=== PATIENT | male | born 1940 | race Caucasian/White ===

== ENCOUNTER 2021-01-25 21:25 | Emergency (ER) | payer MEDICARE, SELFPAY ==
--- NOTE | ~2021-01-25 | XR_ITS ---
XR chest 1V portable 01/25/2021 22:53 Indication: Cough Procedure: AP portable chest Comparison: 03/15/2010 Findings: Cardiomegaly. Mild interstitial edema. No significant effusion or pneumothorax. No acute os seous abnormality. No significant pleural effusion. Impression: 1: Cardiomegaly with mild interstitial edema. Reviewed, dictated and finalized at location A. Impression: 1: Cardiomegaly with mild interstitial edema.
[2021-01-25 21:32] VITALS: BP 170/90; PULSE 102; RESP 18; TEMP 36.8; O2SAT 97
--- NOTE | 2021-01-25 22:41 | ECG_ITS ---
Measurements Intervals [place] Rate: 85 P: 64 TN: 174 QRS: -36 QRSD: 122 T: -7 QT: 348 QTc: 415 Interpretive Statements SINUS RHYTHM WITH SINUS ARRHYTHMIA INTRAVENTRICULAR CONDUCTION DELAY DELAYED PRECORDIAL R/S TRANSITION INFERIOR INFARCT, AGE INDETERMINATE BASELINE ARTIFACT- I, II, III, AVR, AVL, AVF ABNORMAL ECG Electronically Signed On 01-26-2021 6:28:44 CDT by Preet Chavez D.O.
[2021-01-25 23:35] LABS: Basophils Percent Auto 0.3 % (0.2-1.2); Eosinophils Absolute Auto 0.3 K/mm3 (0-0.3); Eosinophils Percent Auto 3.9 % (0-4.4); Hematocrit 50.4 % (42.0-52.0); Hemoglobin 16.6 g/dL (14.0-18.0); Immature Granulocyte Absolute 0.02 K/mm3 (0.00-0.031); Immature Granulocyte Percent A 0.3 % (0-0.5); Lymphocytes Percent Auto 20.1 % (18.3-44.2); Mean Corpuscular HGB Conc 32.9 g/dl (32-36); Mean Corpuscular Hemoglobin 30.6 pg (26-34); Mean Platelet Volume 11.4 fl (7.4-10.4); Monocytes Absolute Auto 0.9 K/mm3 (0.1-0.6); Monocytes Percent Auto 12.3 % (2.6-8.5); Neutrophils Absolute Auto 4.7 K/mm3 (1.3-6.7); Neutrophils Percent Auto 63.1 % (45.5-73.1); Platelet Count Result 154 k/mm3 (150-375); Red Blood Count 5.42 M/mm3 (4.6-6.20); Red Cell Distribution Width 14.2 % (11.5-14.5); White Blood Count 7.5 K/mm3 (4.5-10.0)
--- NOTE | 2021-01-25 23:38 | ED.URI ---
HPI - URI/Sore Throat General Chief Complaint: Upper Respiratory Infection Stated Complaint: congestion, cough, tightness around ribs Time Seen by Provider: 01/25/21 22:36 Source: patient, family and RN notes reviewed Limitations: other (hard of hearing) History of Present Illness HPI Narrative: This is a 80 year old male with history of chronic lung disease, CAD s/p stents who presents for evaluation URI with rib pain. Patient reports coughing for 2-3 weeks with clear phlegm. He also reports sinus congestion. He has intermittent bilateral rib tightness for 2 weeks as well but he denies any pain now. His granddaughter reports subjective fever and chills. HE denies nausea, vomiting and diarrhea. He does state he feels more short of breath than usual. Related Data Allergies Allergy/AdvReac Type Severity Reaction Status Date / Time PCN Allergy Mild Uncoded 03/15/10 01:09 Review of Systems Review of Systems: All systems reviewed & are unremarkable except as noted in HPI and below Constitutional: Constitutional: Reports chills and Reports fever(s) (subjective) ENT: Denies epistaxis and Denies sore throat Cardiovascular: Cardiovascular: Reports chest pain and Denies radiating jaw, neck or arm pain Respiratory: Respiratory: Reports chest congestion, Reports cough, Reports dyspnea and Denies wheezing Gastrointestinal: Gastrointestinal: Denies abdominal pain, Denies diarrhea, Denies nausea and Denies vomiting PMFSH Past Medical History Medical History (Updated 01/26/21 @ 01:43 by Charlene Farah MD) CAD (coronary artery disease) Chronic lung disease Surgical History Surgical History (Updated 01/25/21 @ 23:38 by Charlene Farah MD) History of coronary angioplasty with insertion of stent Social History Social History (Updated 01/25/21 @ 23:39 by Charlene Farah MD) Smoking status: Former smoker Exam Const: General: alert Orientation/consciousness: patient oriented x3 Eyes: EOM: EOMs intact bilaterally Resp: Effort & Inspection: normal respiratory effort and no retractions Auscultation: clear to auscultation bilaterally Cardio: Rate: regular rate Rhythm: regular rhythm Heart sounds: no murmurs GI: GI Palp: Yes Soft to palpation, No Tenderness to palpation present (GI) and No Guarding due to palpation present (GI) Auscultation: normal bowel sounds Skin: General skin exam: normal color Rashes: no rashes Neuro: General: patient oriented x3 and moves all extremities Extrem: General: normal to inspection and no pedal edema Psych: Mental Status: mental status grossly normal Affect: normal affect Course Reevaluation(s) Reevaluation #1: I discussed with patient that labs were unremarkable. His xray shows possible chronic lung disease with infiltrates. He has been tested for covid and will be started on antibiotics. He has no hypoxia Date: 01/26/21 Time: 01:41 Vital Signs Vital signs: Vital Signs Temperature 98.3 F 01/25/21 21:32 Pulse Rate 102 H 01/25/21 21:32 Respiratory Rate 18 01/25/21 21:32 Blood Pressure 170/90 H 01/25/21 21:32 Pulse Oximetry 97 01/25/21 21:32 Temperature 98.1 F 01/26/21 01:05 Pulse Rate 81 01/26/21 01:05 Respiratory Rate 20 01/26/21 01:05 Blood Pressure 145/94 H 01/26/21 01:05 Pulse Oximetry 96 01/26/21 01:05 MDM - URI/Sore Throat Lab Data Attestation: I reviewed the patient's lab results. Result diagrams: 01/25/21 23:29 01/25/21 23:29 Labs: Lab Results 01/25/21 01/25/21 01/25/21 Range/Units 23:28 23:29 23:29 WBC 7.5 (4.5-10.0) K/mm3 RBC 5.42 (4.6-6.20) M/mm3 Hgb 16.6 (14.0-18.0) g/dL Hct 50.4 (42.0-52.0) % MCV 93.0 (80-100) fl MCH 30.6 (26-34) pg MCHC 32.9 (32-36) g/dl RDW 14.2 (11.5-14.5) % Plt Count 154 (150-375) k/mm3 MPV 11.4 H (7.4-10.4) fl Immature Gran % (Auto) 0.3 (0-0.5) % Neut % (Auto) 63.1 (45.5-73.1) % L
[2021-01-25 23:47] LABS: Lactic Acid Reflex 1.2 mmol/L (0.7-2.1)
[2021-01-25 23:48] LABS: D Dimer 0.43 ug/mL (<0.48)
[2021-01-25 23:49] LABS: Alanine Aminotransferase 26 U/L (4-50); Albumin Level 4.4 g/dL (3.5-5.1); Alkaline Phosphatase 105 U/L (38-126); Anion Gap 9 mmol/L (8-16); Aspartate Amino Transferase 32 U/L (17-59); Bilirubin,Total 0.5 mg/dL (0.2-1.3); Blood Urea Nitrogen 10 mg/dL (9-20); CRP < 0.5 mg/dL (<1.0); Calcium 9.3 mg/dL (8.4-10.2); Carbon Dioxide 27 mmol/L (22-30); Chloride 104 mmol/L (98-107); Estimated Glomerular Filt Rate > 60; Glucose 114 mg/dL (65-110); Potassium 4.3 mmol/L (3.4-5.0); Sodium 140 mmol/L (137-145)
[2021-01-26 00:51] LABS: Troponin I < 0.012 ng/mL (0.000-0.034)
[2021-01-26 00:53] VITALS: O2SAT 99
[2021-01-26] MEDS: AZITHROMYCIN 250 MG TABLET 500 MG PO (00:59)
[2021-01-26 01:05] VITALS: BP 145/94; PULSE 81; RESP 20; TEMP 36.7; O2SAT 96
[2021-01-27 15:38] LABS: SARS-CoV-2 RNA PCR Negative
== END 2021-01-26 01:55 | disposition home or self-care (01) ==
PROVIDERS: Emergency Provider General Practice; PCP Internal Medicine
DX: J06.9 Acute upper respiratory infection, unspecified (principal); Z20.822 Contact with and (suspected) exposure to COVID-19; I25.10 Atherosclerotic heart disease of native coronary artery without angina pectoris; Z95.5 Presence of coronary angioplasty implant and graft; J98.4 Other disorders of lung; Z87.891 Personal history of nicotine dependence; I51.7 Cardiomegaly; I45.9 Conduction disorder, unspecified; R94.31 Abnormal electrocardiogram [ECG] [EKG]
CPT/HCPCS: 36415; 71045; 80053; 83605; 84484; 85025; 85380; 86140; 93005; 99284; A9270; C9803; U0003; U0005